=== PATIENT | male | born 1960 | race Two or more races ===

== ENCOUNTER 2022-06-15 19:07 | Inpatient (IN) | payer OTHER ==
[~2022-06-15] VITALS: Ht 162.6 cm; Wt 55.3 kg
--- NOTE | 2022-06-15 19:07 | NUR ---
BIBRA 38 FROM HOME C/O SEIZURE LKWT 183. SEIZURE AT AMBULANCE 1900 45 SECS. PRECISION FARMING COORDINATOR BS 543. PLACED ON BED, AWAKE ALERT RESPONDING TO VERBAL STIMULI, BREATHING EVEN AND UNLABORED SATURATING AT 98%RA.
--- NOTE | 2022-06-15 19:07 | NUR ---
LEFT SIDED WEAKNESS NOTED DR CANALES AWARE
--- NOTE | 2022-06-15 19:10 | NUR ---
CODE STROKE CALLED
--- NOTE | 2022-06-15 19:14 | NUR ---
BG 537
--- NOTE | 2022-06-15 19:15 | NUR ---
CALLED [facility] [phone] REICH
--- NOTE | 2022-06-15 19:17 | NUR ---
PT TO CT VIA ACLS PROTOCALS.
[2022-06-15] MEDS ORDERED: LORAZEPAM INJ 2 MG/ML VIAL ONE ×2 (19:19→19:57)
--- NOTE | 2022-06-15 19:19 | NUR ---
ON THE WAY TO CT SCAN PATIENT HAD ANOTHER SEIZURE ATIVAN 2MG IV GIVEN
[2022-06-15] MEDS ORDERED: IOHEXOL-350 100 ML VIAL IV ONE (19:25)
[2022-06-15] MEDS ORDERED: IV NS 0.9% 1,000 ML BAG IV ONE ×2 (19:30→20:30)
[2022-06-15] MEDS ORDERED: LORAZEPAM INJ 2 MG/ML VIAL IV ONE ×2 (19:30→20:00)
[2022-06-15 19:44] LABS: CALCIUM, SERUM 9.3 mg/dL (8.5-10.1); CARBON DIOXIDE 13 mmol/L (21-32); CHLORIDE 96 mmol/L (98-107); CREATININE 2.2 mg/dL (0.6-1.3); POTASSIUM 3.8 mmol/L (3.5-5.1); SODIUM SERUM 135 mmol/L (136-145); UREA NITROGEN, BLOOD 18 mg/dL (7-18)
[2022-06-15 19:48] LABS: GLUCOSE 591 mg/dL (74-106)
--- NOTE | 2022-06-15 19:48 | NUR ---
CRITICAL LAB BLOOD GLUCOSE 591 DR. PARKER COLE AWARE
--- NOTE | 2022-06-15 19:52 | NUR ---
DR. PARKER COLE SPEAKING TO DR. SNOW RADIOLOGIST
--- NOTE | 2022-06-15 19:55 | NUR ---
PATIENT HAD ANOTHER SEIZURE ATIVAN 2MG IV GIVEN. SEIZURE LASTED 3MIN
[2022-06-15 19:58] LABS: BASOPHILS # (AUTO) 0.1 K/uL (0.0-0.2); BASOPHILS % (AUTO) 0.7 % (0.0-2.0); EOSINOPHILS % (AUTO) 3.8 % (0.0-6.0); HEMATOCRIT 51 % (39-51); HEMOGLOBIN 16.3 g/dL (13.5-17.5); LYMPHOCYTES # (AUTO) 4.1 K/uL (0.8-4.8); LYMPHOCYTES % (AUTO) 34.9 % (20.0-44.0); MEAN CORPUSCULAR HGB CONC 32 g/dl (31.0-36.0); MEAN CORPUSCULAR VOLUME 97 fL (80-96); MONOCYTES % (AUTO) 8.8 % (2.0-12.0); NEUTROPHILS # (AUTO) 6.1 K/uL (1.8-8.9); NEUTROPHILS % (AUTO) 51.8 % (43.0-81.0); PLATELET COUNT (AUTO) 248 K/uL (150-450); RED BLOOD CELL COUNT(AUTO) 5.28 MIL/uL (4.5-6.0); WHITE BLOOD COUNT (AUTO) 11.7 K/uL (4.3-11.0)
--- NOTE | 2022-06-15 19:58 | NUR ---
PT NOTED TO BE HAVING SECOND SEIZURE, LASTING 3 MIN. SEIZURE PRECAUTIONS ARE IN PLACE. AIRWAY KEPT CLEAR. CONTINUES TO BE ON MONITOR. MD MADE AWARE. VERBAL ORDER FOR 2MG ATIVAN.
[2022-06-15] MEDS ORDERED: LEVETIRACETAM (500MG) 1,000 MG in IV NS 0.9% 100 ML IV SCH ×2 (20:00→21:30)
[2022-06-15] MEDS ORDERED: LEVETIRACETAM (500MG) 500 MG/5 ML VIAL IV ONE (20:24)
[2022-06-15] MEDS ORDERED: INSULIN REGULAR, HUMAN 100 UNIT/ML 10 ML VIAL ONE (20:25)
--- NOTE | 2022-06-15 20:29 | NUR ---
PER FINA COATES FROM [facility] [place] , [place] TO ADMIT AUTH#[id number]
[2022-06-15] MEDS ORDERED: INSULIN REGULAR, HUMAN 100 UNIT/ML 10 ML VIAL IV ONE (20:30)
[2022-06-15] MEDS ORDERED: ASPIRIN 300 MG/SUPP.RECT RC ONE (20:45)
--- NOTE | 2022-06-15 20:53 | NUR ---
SWAB FOR COVID19 SENT TO LAB
--- NOTE | 2022-06-15 20:59 | NUR ---
SEEN BY SKIP ROGERS AT BEDSIDE
[2022-06-15] MEDS ORDERED: ASPIRIN 600 MG/SUPP.RECT RC ONE (21:00)
[2022-06-15] MEDS ORDERED: ENALAPRILAT INJ (1.25 MG/ML) 1.25 MG/ML VIAL IV PRN (21:30)
[2022-06-15] MEDS ORDERED: LORAZEPAM INJ 2 MG/ML VIAL IV PRN (21:30)
[2022-06-15] MEDS ORDERED: DEXTROSE 50%-WATER 50 ML DISP.SYRIN IV PRN (21:30)
[2022-06-15] MEDS ORDERED: SIMVASTATIN 40 MG TABLET PO SCH (22:00)
[2022-06-15] MEDS ORDERED: BLOOD SUGAR DIAGNOSTIC 1 EACH STRIP IN SCH (22:00)
[2022-06-15] MEDS ORDERED: ENOXAPARIN SODIUM 30 MG/0.3 ML DISP.SYRIN ONE (22:05)
[2022-06-15] MEDS: ENOXAPARIN SODIUM 30 MG/0.3 ML DISP.SYRIN SQ SCH (22:05)
--- NOTE | 2022-06-15 22:10 | NUR ---
ECHO. TECH AT BEDSIDE
--- NOTE | 2022-06-15 22:15 | NUR ---
INSTRUCTED DAUGHTER TO BRING A LIST OF HOME MEDS TOMKEITHW.
--- NOTE | 2022-06-15 22:17 | NUR ---
REPORT GIVEN TO ED- CHARGE NURSE ICU FOR JUANITA
--- NOTE | 2022-06-15 22:25 | NUR ---
HEIKE (DAUGHTER) [phone]. CALL DAUGHTER FOR UPDATES ANY TIME.
--- NOTE | 2022-06-15 22:26 | NUR ---
TRANSFERRED TO ICU
[2022-06-15 22:38] VITALS: BP 132/73
--- NOTE | 2022-06-15 22:45 | NUR ---
ICU/CORN COOKER CHARGE NURSE GOT REPORT FROM ER NURSE. PLACED PT INTO BED WITH SCHOOL NURSE SHANEKA. CHARGE GIVEN SUPPLIES FOR SEIZURES PRECAUTIONS.
[2022-06-15] MEDS: IV NS 0.9% 1,000 ML IV PRN (22:51)
[2022-06-15 23:00] VITALS: BP 143/82
[2022-06-15 23:15] VITALS: BP 146/76
[2022-06-15] MEDS: INSULIN REGULAR, HUMAN 100 UNIT/ML 3 ML VIAL SQ PRN (23:23)
[2022-06-15 23:30] VITALS: BP 152/86
--- NOTE | 2022-06-15 23:36 | NUR ---
ICU/CAP SEWER BED HAD TO BE REPLACED FOR SEIZURE PRECAUTIONS
[2022-06-15] MEDS ORDERED: INSULIN REGULAR, HUMAN 100 UNIT/ML 3 ML VIAL ONE (23:41)
[2022-06-15 23:45] VITALS: BP 145/91
[2022-06-16] VITALS (58 sets, daily range): BP systolic 84–170; BP diastolic 48–106
--- NOTE | 2022-06-16 00:15 | NUR ---
ICU/FLOOR COVERING PRINTER ASSISTANT NEURO CHECK IS DONE EVERY 2 HOURS BLOOD SUGAR CHECK IS DONE EVERY 4 HOURS PT SWALLOWED WATER WITHOUT ISSUE PT IS ABLE TO ANSWER QUESTIONS PT IS ABLE TO LIFT LEG AND ARMS WITHOUT ISSUE.
--- NOTE | 2022-06-16 01:00 | NUR ---
ICU/HOROLOGIST VASO WAS GIVEN FOR ELEVATED BP 170'S, SUE WANTS BP LESS THAN 160'S. WILL MONITOR THIS PT.
[2022-06-16] MEDS: BLOOD SUGAR DIAGNOSTIC 1 EACH STRIP IN SCH ×6 (03:27→22:20)
[2022-06-16] MEDS: INSULIN REGULAR, HUMAN 100 UNIT/ML 3 ML VIAL SQ PRN ×4 (03:29→22:20)
--- NOTE | 2022-06-16 06:00 | NUR ---
ICU/CURLING MACHINE OPERATOR BLOOD SUGAR CHECK EVERY 4 HOURS, SEE MAR FOR SUGAR AND COVERAGE
[2022-06-16] MEDS: IV NS 0.9% 1,000 ML IV PRN ×2 (06:10→19:14)
--- NOTE | 2022-06-16 07:35 | NUR ---
RN/ICU OPENING PT RECEIVED IN BED RESTING WITH EYES CLOSED HOB ELEVATED. BED SIDE MONITOR SHOWING SR, SBP BELLOW 160 PER MD ORDERS. UPON WALKING INTO THE ROOM I AWOKE PT AND WAS ABLE TO ANSWER ORIENTATION QUESTIONS AND FOLLOW COMMANDS. NO S/S OF HEMIAPLASIA FACE IS SYMMETRICAL EXTREMITIES EXHIBIT LESS THAN OPTIMAL DEXTERITY BUT GOOD AVIATION PROGRAM MANAGER STRENGTH ON ALL FOUR EXTREMITIES. NS @125ML/HR. HOB ELEVATED TO 35 DEGREES BED LOCKED BED ALARM ON.
--- NOTE | 2022-06-16 07:43 | NUR ---
WOUND CARE CONSULT: PT PRESENTS WITH RT ANTERIOR LOWER LEG OPEN WOUND, PRESENT ON ADMISSION. DPM CONSULT TO BE CALLED THIS AM. RECOMMENDATIONS MADE FOR SKIN PROTECTION. DISCUSSED WITH NURSING STAFF. MD IN AGREEMENT WITH PLAN OF CARE.
[2022-06-16] MEDS: ASPIRIN EC 325 MG TABLET.DR PO SCH (08:06)
[2022-06-16] MEDS: PANTOPRAZOLE 40 MG TABLET.DR PO SCH (08:06)
[2022-06-16] MEDS: LEVETIRACETAM (500MG) 1,000 MG in IV NS 0.9% 100 ML IV SCH ×2 (08:34→20:56)
[2022-06-16 09:39] LABS: BASOPHILS % (AUTO) 0.4 % (0.0-2.0); HEMATOCRIT 42 % (39-51); HEMOGLOBIN 13.6 g/dL (13.5-17.5); LYMPHOCYTES # (AUTO) 2.7 K/uL (0.8-4.8); LYMPHOCYTES % (AUTO) 23.6 % (20.0-44.0); MEAN CORPUSCULAR HGB CONC 32 g/dl (31.0-36.0); MEAN CORPUSCULAR VOLUME 93 fL (80-96); MONOCYTES # (AUTO) 1.1 K/uL (0.1-1.30); MONOCYTES % (AUTO) 9.6 % (2.0-12.0); NEUTROPHILS # (AUTO) 7.4 K/uL (1.8-8.9); NEUTROPHILS % (AUTO) 64.4 % (43.0-81.0); PLATELET COUNT (AUTO) 210 K/uL (150-450); RED BLOOD CELL COUNT(AUTO) 4.53 MIL/uL (4.5-6.0); WHITE BLOOD COUNT (AUTO) 11.4 K/uL (4.3-11.0)
[2022-06-16 10:11] LABS: CALCIUM, SERUM 7.8 mg/dL (8.5-10.1); CREATININE 1.2 mg/dL (0.6-1.3); POTASSIUM 2.9 mmol/L (3.5-5.1)
[2022-06-16 12:59] LABS: CALCIUM, SERUM 7.9 mg/dL (8.5-10.1); CREATININE 1.3 mg/dL (0.6-1.3); POTASSIUM 3.5 mmol/L (3.5-5.1)
[2022-06-16] MEDS ORDERED: ALBU18HF2 IH (14:43)
[2022-06-16] MEDS ORDERED: ATOR40TA PO (14:43)
[2022-06-16] MEDS ORDERED: ASPI-1420 PO (14:43)
[2022-06-16] MEDS ORDERED: LISI-768 PO (14:43)
[2022-06-16] MEDS ORDERED: INSU100V SQ (14:43)
[2022-06-16] MEDS ORDERED: GLIP5TAB13 PO (14:43)
[2022-06-16] MEDS ORDERED: INSU100V7 SQ (14:43)
[2022-06-16] MEDS ORDERED: CARV3.122 PO (14:43)
[2022-06-16] MEDS ORDERED: FLUT12AE15 INH (14:43)
[2022-06-16 17:12] LABS: CALCIUM, SERUM 7.8 mg/dL (8.5-10.1); CREATININE 1.2 mg/dL (0.6-1.3); POTASSIUM 4.2 mmol/L (3.5-5.1)
--- NOTE | 2022-06-16 18:00 | NUR ---
IT TECHNICAL ARCHITECTADMISSIONS CONSULTANT NOTES: RECEIVED PT FROM ICU STAFF. PT AWAKE, A/OX4. ABLE TO MAKE NEEDS KNOWN. PT ORIENTED TO STAFF AND UNIT. ON RA TOLERATING WELL WITH NO S/S OF SOB AND ACUTE DISTRESS. VITALS STABLE: BP - 121/67, HR-84, O2 SAT-100%, RR-18, TEMP- 98.0. DENIES PAIN AT THIS TIME. IV ACCESS NOTED @ R FA# 18 INFUSING NS @ 125 ML/HR, IV ACCESS AT L AC #18 SL, PATENT AND INTACT. TELE MONITOR READING SR, 82BPM. TREJO CATHETER NOTED, DRAINING CLEAR YELLOW URINE. SAFETY MEASURES AND SEIZURE PRECAUTIONS IN PLACE; TABLE AND CALL LIGHT WITHIN REACH, WILL CONT TO MONITOR THROUGHOUT SHIFT.
--- NOTE | 2022-06-16 19:33 | NUR ---
CENTER LEAD CONSULTANT CLOSING NOTES: ENDORSED TO PM SHIFT FOR JUANITA.
[2022-06-16 20:23] LABS: CALCIUM, SERUM 7.9 mg/dL (8.5-10.1); CREATININE 1.3 mg/dL (0.6-1.3); POTASSIUM 3.5 mmol/L (3.5-5.1)
[2022-06-16] MEDS: ENOXAPARIN SODIUM 30 MG/0.3 ML DISP.SYRIN SQ SCH (20:51)
--- NOTE | 2022-06-16 20:52 | NUR ---
ANTICOAGULANT H/H 13.6/42 PLT 210. No active bleeding. Given Lovenox injection co-signed by Cedric John.
[2022-06-16] MEDS ORDERED: SIMVASTATIN 20 MG TABLET PO SCH (22:00)
--- NOTE | 2022-06-16 22:21 | NUR ---
ACCU CHECK Bld glucose 163mg/dl. Given 3 units insulin per SS parameters. Co-signed by MERVAT John.
[2022-06-17] VITALS: BP 125/66
[2022-06-17] MEDS: BLOOD SUGAR DIAGNOSTIC 1 EACH STRIP IN SCH ×3 (02:00→10:39)
--- NOTE | 2022-06-17 03:21 | NUR ---
NIH STROKE SCALE q2H Unable to assess patient for NIH stroke scale, patient sleeping.
[2022-06-17] MEDS: IV NS 0.9% 1,000 ML IV PRN (04:42)
[2022-06-17] MEDS: INSULIN REGULAR, HUMAN 100 UNIT/ML 3 ML VIAL SQ PRN ×2 (05:46→10:29)
--- NOTE | 2022-06-17 05:47 | NUR ---
ACCU CHECK Bld glucose 139mg/dl. Given 2 units insulin per SS parameters. Co-signed by MERVAT John.
[2022-06-17 06:00] LABS: BASOPHILS % (AUTO) 0.4 % (0.0-2.0); EOSINOPHILS % (AUTO) 3.9 % (0.0-6.0); HEMATOCRIT 43 % (39-51); HEMOGLOBIN 14.3 g/dL (13.5-17.5); LYMPHOCYTES # (AUTO) 1.9 K/uL (0.8-4.8); LYMPHOCYTES % (AUTO) 23.7 % (20.0-44.0); MEAN CORPUSCULAR HGB CONC 34 g/dl (31.0-36.0); MEAN CORPUSCULAR VOLUME 93 fL (80-96); MONOCYTES # (AUTO) 0.6 K/uL (0.1-1.30); NEUTROPHILS # (AUTO) 5.2 K/uL (1.8-8.9); PLATELET COUNT (AUTO) 183 K/uL (150-450); RED BLOOD CELL COUNT(AUTO) 4.61 MIL/uL (4.5-6.0); WHITE BLOOD COUNT (AUTO) 8.1 K/uL (4.3-11.0)
[2022-06-17 06:11] LABS: CALCIUM, SERUM 7.9 mg/dL (8.5-10.1); CREATININE 1.3 mg/dL (0.6-1.3); MAGNESIUM 1.9 mg/dL (1.8-2.4); PHOSPHORUS 2.6 mg/dL (2.5-4.9); POTASSIUM 3.5 mmol/L (3.5-5.1)
--- NOTE | 2022-06-17 06:13 | NUR ---
END OF SHIFT REPORT Patient in bed, Alert Oriented x3. Forgetful, easily re oriented. Oxygen sat 97% on RA. Sinus Rhythm in the Tele monitor HR 96. RFA IV intact, IVF infusing, good appetite. Accu check ACHS with SS insulin parameters. Becker cath to gravity drainage bag, output 300ml yellow clear. No episode of seizure during the shift. Monitor for NIH stroke scale q2H with zero score during the shift. Patient denies pain. Continue Keppra for seizure prophylaxis per Neuro. Fall precaution maintained. Will endorse to oncoming RN.
--- NOTE | 2022-06-17 07:42 | NUR ---
SOFTWARE PUBLISHER OPENING NOTES: PT ASLEEP, A/OX4. ABLE TO MAKE NEEDS KNOWN. ON RA TOLERATING WELL WITH NO S/S OF SOB AND ACUTE DISTRESS. DENIES PAIN AT THIS TIME. IV ACCESS NOTED @ R FA# 18 INFUSING NS @ 125 ML/HR. TELE MONITOR READING ST 102. TREJO CATHETER NOTED, DRAINING CLEAR YELLOW URINE. SAFETY MEASURES AND SEIZURE PRECAUTIONS IN PLACE; TABLE AND CALL LIGHT WITHIN REACH, WILL CONT TO MONITOR THROUGHOUT SHIFT.
[2022-06-17 08:00] VITALS: BP 147/77
[2022-06-17] MEDS: ASPIRIN EC 325 MG TABLET.DR PO SCH (08:33)
[2022-06-17] MEDS: PANTOPRAZOLE 40 MG TABLET.DR PO SCH (08:37)
[2022-06-17] MEDS ORDERED: LEVE1000 PO (08:37)
[2022-06-17] MEDS: LEVETIRACETAM (500MG) 1,000 MG in IV NS 0.9% 100 ML IV SCH ×2 (09:28→09:29)
--- NOTE | 2022-06-17 12:00 | NUR ---
LOCAL [place] TRUCK DRIVERMONEY MANAGER NOTES: PT IS MEDICALLY STABLE AT DISCHARGE; VS WNL, NO S/S OF SOB AND ACUTE DISTRESS ON RA. NEW MEDICATION AND DISCHARGE INSTRUCTIONS DISCUSSED WITH PT AND FAMILY AT BEDSIDE; PT VERBALIZED UNDERSTANDING. HOSPITAL DOCUMENTS AND BELONGINGS SIGNED AND GIVEN TO PATIENT; TELE MONITOR, IV ACCESS AND ID BAND REMOVED. RN EMPHASIZED IMPORTANCE OF PCP FOLLOW UP, INFORMED THAT CM WILL ASSIST WITH HH FOR PHYSICAL THERAPY AND NEUROLOGY APPOINTMENT; PT AGREED TO EVERYTHING DISCUSSED. PT LEFT UNIT VIA WHEELCHAIR, ESCORTED BY STAFF, DAUGHTER WILL TRANSPORT PT VIA PRIVATE CAR. Addendum: 06/17/22 at 1620 by MADY CUETO RN TREJO CATHETER REMOVED.
--- NOTE | 2022-06-17 12:34 | NUR ---
DMV Notice: BAYRON mailed off notice of new onset seizures to DM per Romulo KEY CARRIER request.
--- NOTE | 2022-06-17 15:19 | NUR ---
SS consult requested for code stroke.BAYRON hammer follow up at a later time.
== END 2022-06-17 12:30 | disposition home or self-care (01) | DRG 53 ==
LOC: ER 19:11 → ICU 21:00 → TELE 06-16 18:01
PROVIDERS: ADMIT Nurse Practitioner Acute Care; ATTEND Nurse Practitioner Acute Care
DX: R56.9 Unspecified convulsions (principal); N17.0 Acute kidney failure with tubular necrosis; E11.65 Type 2 diabetes mellitus with hyperglycemia; E87.1 Hypo-osmolality and hyponatremia; E87.6 Hypokalemia; I10 Essential (primary) hypertension; I25.10 Atherosclerotic heart disease of native coronary artery without angina pectoris; Z87.891 Personal history of nicotine dependence; E86.1 Hypovolemia; Z95.5 Presence of coronary angioplasty implant and graft; S81.811A Laceration without foreign body, right lower leg, initial encounter; X58.XXXA Exposure to other specified factors, initial encounter; Y93.9 Activity, unspecified; Y92.009 Unspecified place in unspecified non-institutional (private) residence as the place of occurrence of the external cause; R53.1 Weakness; R27.8 Other lack of coordination; Z79.4 Long term (current) use of insulin; Z79.84 Long term (current) use of oral hypoglycemic drugs; Z20.822 Contact with and (suspected) exposure to COVID-19; M79.661 Pain in right lower leg
CPT/HCPCS: 36415; 70450-TC; 70496-TC; 70498-TC; 70551-TC; 71045-TC; 76770-TC; 80048-TC; 80061-TC; 82962-TC; 83735-TC; 84100-TC; 84443-TC; 84484-TC; 85025-TC; 85652-TC; 85730-TC; 87081-TC; 93307-TC; 95819-TC; 97112-TC; 97116-TC; 97530-TC; G0378; J1650; J1815; J1953; J2060; J3490; J7030; Q9967

== ENCOUNTER 2025-04-09 21:31 | Emergency (ER) | payer MEDICARE, OTHER ==
[~2025-04-09] VITALS: Ht 157.5 cm; Wt 54.4 kg
[~2025-04-09 21:31] MED LIST: ALBU18HF2 IH; ASPI-1420 PO; ATOR40TA PO; CARV3.122 PO; FLUT12AE15 INH; GLIP5TAB13 PO; INSU100V SQ; INSU100V7 SQ; LEVE1000 PO; LISI-768 PO
[2025-04-09 22:10] LABS: PLATELET COUNT (AUTO) 197 K/uL (150-450); RED BLOOD CELL COUNT(AUTO) 4.23 MIL/uL (4.5-6.0); RED CELL DISTRIBUTION WIDTH 15.3 % (11.5-15.0); WHITE BLOOD COUNT (AUTO) 8.0 K/uL (4.3-11.0)
[2025-04-09 22:17] LABS: CALCIUM, SERUM 9.2 mg/dL (8.5-10.1); CREATININE 2.0 mg/dL (0.6-1.3); SODIUM SERUM 135.0 mmol/L (136-145); UREA NITROGEN, BLOOD 32.0 mg/dL (7-18)
[2025-04-09 22:23] LABS: ASPARTATE AMINOTRANSFERASE 27.0 U/L (15-37); PHOSPHORUS 4.1 mg/dL (2.5-4.9); TOTAL PROTEIN, SERUM 7.4 g/dL (6.4-8.2)
[2025-04-09 22:48] LABS: APPEARANCE,URINE CLEAR (CLEAR); BLOOD, URINE TRACE-INTA Ery/uL (NEGATIVE); LEUKOCYTE ESTERASE ,URINE NEGATIVE (NEGATIVE); NITRITE, URINE NEGATIVE (NEGATIVE); UGLUCOSE 3+ mg/dL (NEGATIVE)
[2025-04-09 22:51] LABS: ADD URINE CULTURE NO; SQUAMOUS EPITHELIAL CELL,UR None Seen /HPF (None Seen)
[2025-04-09] MEDS: IV NS 0.9% 1,000 ML IV ONE (22:52)
[2025-04-09 23:21] LABS: LACTIC ACID 1.5 mmol/L (0.4-2.0)
[2025-04-09 23:25] LABS: NT-PRO BNP 2267.0 pg/mL (0-125)
[2025-04-10 01:13] VITALS: BP 107/62; TEMP 98.2; O2SAT 99
== END 2025-04-10 01:14 | disposition home or self-care (01) ==
LOC: ER 21:33
DX: R53.1 Weakness (principal); I10 Essential (primary) hypertension; G40.909 Epilepsy, unspecified, not intractable, without status epilepticus; E78.5 Hyperlipidemia, unspecified; E11.9 Type 2 diabetes mellitus without complications; R06.02 Shortness of breath; I48.91 Unspecified atrial fibrillation; Z79.51 Long term (current) use of inhaled steroids; Z79.82 Long term (current) use of aspirin; Z79.84 Long term (current) use of oral hypoglycemic drugs; Z79.899 Other long term (current) drug therapy; Z95.0 Presence of cardiac pacemaker
CPT/HCPCS: 99285; 96360; 71045; 93005; 85025; 87040; 83605; 83735; 84100; 81001; 36415; 80053; 84484; 83880; J7030